=== PATIENT | female | born 1990 | race Two or more races ===

== ENCOUNTER 2021-10-05 07:40 | Outpatient (CLI) | payer OTHER | END 2021-10-05 09:05 | disposition home or self-care (01) | LOC: PRENATAL 07:40 | PROVIDERS: ATTEND Obstetrics & Gynecology Maternal & Fetal Medicine | DX: O35.0XX1 Maternal care for (suspected) central nervous system malformation in fetus, fetus 1 (principal); O35.3XX1 Maternal care for (suspected) damage to fetus from viral disease in mother, fetus 1; O98.512 Other viral diseases complicating pregnancy, second trimester; O99.342 Other mental disorders complicating pregnancy, second trimester; Z36.89 Encounter for other specified antenatal screening; Z3A.22 22 weeks gestation of pregnancy ==

== ENCOUNTER 2023-10-04 14:21 | Outpatient (CLI) | payer OTHER | END 2023-10-04 14:37 | disposition home or self-care (01) | LOC: PRENATAL 14:21 | PROVIDERS: ATTEND Obstetrics & Gynecology Maternal & Fetal Medicine | DX: O35.3XX0 Maternal care for (suspected) damage to fetus from viral disease in mother, not applicable or unspecified (principal); O44.00 Complete placenta previa NOS or without hemorrhage, unspecified trimester; O34.219 Maternal care for unspecified type scar from previous cesarean delivery; O09.529 Supervision of elderly multigravida, unspecified trimester; Z3A.20 20 weeks gestation of pregnancy ==

== ENCOUNTER 2023-12-27 13:39 | Outpatient (CLI) | payer OTHER | END 2023-12-27 13:40 | disposition home or self-care (01) | LOC: PRENATAL 13:39 | PROVIDERS: ATTEND Obstetrics & Gynecology Maternal & Fetal Medicine | DX: O26.849 Uterine size-date discrepancy, unspecified trimester (principal); O36.8199 Decreased fetal movements, unspecified trimester, other fetus; O34.219 Maternal care for unspecified type scar from previous cesarean delivery; O09.529 Supervision of elderly multigravida, unspecified trimester; O99.343 Other mental disorders complicating pregnancy, third trimester; Z3A.32 32 weeks gestation of pregnancy ==